=== PATIENT | female | born 1970 | race Caucasian/White ===

== ENCOUNTER 2020-07-01 17:20 | Emergency (ER) | payer SELFPAY ==
--- NOTE | 2020-07-01 18:23 | ER Document Report ---
ED Medical Screen (RME) - General Chief Complaint: Chest Pain Stated Complaint: CHEST PAIN,LEFT LEG PAIN Time Seen by Provider: 07/01/20 18:10 Mode of Arrival: Ambulatory Information source: Patient - HPI Patient complains to provider of: Leg pain, abdominal pain, chest pain Notes: 07/01/20 18:21 Patient here with multiple complaints. The patient has a extensive medical history including DVT, IVC filter, chronic pain. She has moved here from [place] at the beginning of the month. She does not have any of her medications including her Xarelto which she is supposed to be taking. States that she had surgery on her left knee at the end of last year. States that her dog injured her left knee she has had a lot of left knee pain since. She is also complaining of pain in the rest of her leg and she is concerned since she has not been on her blood thinner medications that she may have a blood clot in the left leg. She also reports some lower abdominal pain for the last few days and started having some chest pain earlier today. Exam: Nontoxic, no distress. Lungs clear and equal throughout. Heart sounds normal. Tenderness to palpation of the left anterior knee. No significant swelling. Normal pulse. No focal abdominal tenderness on limited triage abdominal exam. An initial examination was made on the patient as part of the triage process, and it was determined a more comprehensive evaluation was necessary. Initial orders were placed and patient was transferred to another provider in the ED who assumed care and finished evaluation and plan. - Related Data Allergies/Adverse Reactions: No Known Allergies Allergy (Verified 07/01/20 17:59) Physical Exam - Vital signs Vitals: Temp Pulse Resp BP Pulse Ox 98.5 F 92 20 122/75 99 07/01/20 17:39 07/01/20 17:39 07/01/20 17:39 07/01/20 17:39 07/01/20 17:39 Course - Vital Signs Vital signs: Temp Pulse Resp BP Pulse Ox 98.5 F 92 20 122/75 99 07/01/20 17:39 07/01/20 17:39 07/01/20 17:39 07/01/20 17:39 07/01/20 17:39
--- NOTE | 2020-07-01 19:04 | RADIOLOGY REPORT (SQ) ---
EXAM DESCRIPTION: CHEST 2 VIEWS IMAGES COMPLETED DATE/TIME: 07/01/2020 3:50 pm REASON FOR STUDY: CP COMPARISON: None. EXAM PARAMETERS: NUMBER OF VIEWS: two views TECHNIQUE: Digital Frontal and Lateral radiographic views of the chest acquired. RADIATION DOSE: NA LIMITATIONS: none FINDINGS: LUNGS AND PLEURA: Question of a retrocardiac nodular opacity projecting over the right atr ium. This is not definitively seen on the lateral view and could be within the anterior right middle lobe or could be artifactual. No pleural effusion or pneumothorax. MEDIASTINUM AND HILAR STRUCTURES: No masses or contour abnormalities. HEART AND VASCULAR STRUCTURES: Heart normal size. No evidence for failure. BONES: No acute findings. HARDWARE: None in the chest. OTHER: No other significant finding. IMPRESSION: Nodular opacity projecting over the medial right lower chest on frontal view without cor relate on lateral view could be artifactual, though right middle lobe nodule is not definitively excl uded. Consider CT for further evaluation. TECHNICAL DOCUMENTATION: JOB ID: [id number] 2010 [employer]- All Rights Reserved Reading location - IP/workstation name: [email or web address]
--- NOTE | 2020-07-01 19:07 | RADIOLOGY REPORT (SQ) ---
EXAM DESCRIPTION: KNEE LEFT 4 VIEW IMAGES COMPLETED DATE/TIME: 07/01/2020 3:50 pm REASON FOR STUDY: Left knee pain COMPARISON: None. NUMBER OF VIEWS: Four views. TECHNIQUE: AP, lateral, and both oblique radiographic images acquired of the left knee. LIMITATIONS: None. FINDINGS: MINERALIZATION: Normal. BONES: No acute fracture or dislocation. No worrisome bone lesions. JOINT: Small joint effusion. There may be minimal early degenerative changes with slight joint space narrowing and bony spurring in the medial and patellofemoral compartments. SOFT TISSUES: No soft tissue swelling. No radio-opaque foreign body. OTHER: No other significant finding. IMPRESSION: Small joint effusion and mild degenerative changes without acute fracture identified. TECHNICAL DOCUMENTATION: JOB ID: [id number] 2010 [employer]- All Rights Reserved Reading location - IP/workstation name: [email or web address]
[2020-07-01 19:23] LABS: ABSOLUTE LYMPHOCYTES (AUTO) 1.5 10^3/uL (0.5-4.7); ABSOLUTE MONOCYTES (AUTO) 0.5 10^3/uL (0.1-1.4); ABSOLUTE NEUT (AUTO) 5.1 10^3/uL (1.7-8.2); BASOPHILS % (AUTO) 0.4 % (0-2); EOSINOPHILS % (AUTO) 0.1 % (0-6); HEMATOCRIT 35.6 % (36.0-47.0); HEMOGLOBIN 12.2 g/dL (12.0-15.5); LYMPHOCYTES % (AUTO) 20.6 % (13-45); MEAN CORPUSCULAR HEMOGLOBIN 28.4 pg (27.0-33.4); MEAN CORPUSCULAR HGB CONC 34.2 g/dL (32.0-36.0); MEAN CORPUSCULAR VOLUME 83 fl (80-97); MONOCYTES % (AUTO) 7.1 % (3-13); PLATELET COUNT 303 10^3/uL (150-450); RED BLOOD COUNT 4.28 10^6/uL (3.72-5.28); RED CELL DISTRIBUTION WIDTH 13.9 % (11.5-14.0); SEGMENTED NEUTROPHILS % (AUTO) 71.8 % (42-78); TOTAL CELLS COUNTED % (AUTO) 100 %; WHITE BLOOD COUNT 7.1 10^3/uL (4.0-10.5)
[2020-07-01 19:29] LABS: INTERNATIONAL RATION (INR) 0.99; PROTHROMBIN TIME 13.3 SEC (11.4-15.4)
[2020-07-01 19:30] LABS: PARTIAL THROMBOPLASTIN TIME 28.1 SEC (23.5-35.8)
[2020-07-01 19:41] LABS: ALBUMIN 4.1 g/dL (3.5-5.0); ALKALINE PHOSPHATASE 115 U/L (38-126); ANION GAP 5 (5-19); ASPARTATE AMINO TRANSFERASE 27 U/L (14-36); BILIRUBIN,DIRECT 0.3 mg/dL (0.0-0.4); BILIRUBIN,TOTAL 0.5 mg/dL (0.2-1.3); BLOOD UREA NITROGEN 14 mg/dL (7-20); CALCIUM 9.4 mg/dL (8.4-10.2); CARBON DIOXIDE 27 mmol/L (22-30); CHLORIDE 106 mmol/L (98-107); GLUCOSE 101 mg/dL (75-110); POTASSIUM 4.1 mmol/L (3.6-5.0); TOTAL PROTEIN 7.2 g/dL (6.3-8.2)
--- NOTE | 2020-07-01 20:08 | ER Document Report ---
ED General - General Chief Complaint: Chest Pain Stated Complaint: CHEST PAIN,LEFT LEG PAIN Time Seen by Provider: 07/01/20 18:10 Primary Care Provider: BAR EMANUEL MD [ACTIVE STAFF] - Follow up in 1 week Mode of Arrival: Ambulatory Notes: Patient is a 49-year-old female that comes emergency department for chief complaint of intermittent sharp chest pain across the front of her chest that radiates into her back. She states she has felt this throughout the day, she states she has had chest pains along the past but they never radiate to the back so she became concerned and came in for evaluation. She also states that she has intermittent abdominal pain and has been having this for several days, she states she felt feverish and think she has a UTI. She also states that she injured her left knee with her dog was dragging her several weeks ago, she has had pain in the left knee since that time, she states she also has swelling sensation in her calf and lower leg and she thinks she has a blood clot. She states she moved to [place] about 2 weeks ago from [place], she states she lost most of her medications and the only medication she could find where her amitriptyline and Percocet. She states she is supposed to be on Xarelto, she has an IVC filter, she also states that she believes she has had blood clots since the placement of the IVC filter. She states she had surgery on the same knee at the end of April. She denies history of SD, family history of SD, s moking, alcohol, recreational drugs. She reports history of negative stress test in the past. She denies diabetes, hypertension, hyperlipidemia. - Related Data Allergies/Adverse Reactions: No Known Allergies Allergy (Verified 07/01/20 17:59) Past Medical History - General Information source: Patient - Social History Smoking Status: Never Smoker Frequency of alcohol use: None Drug Abuse: None Lives with: Family Family History: Reviewed & Not Pertinent - Past Medical History Cardiac Medical History: Reports: Hx DVT, Hx Pulmonary Embolism Musculoskeletal Medical History: Reports Hx Arthritis Psychiatric Medical History: Reports: Hx Anxiety, Hx Depression Past Surgical History: Reports: Other - IVC filter placement - Immunizations Hx Diphtheria, Pertussis, Tetanus Vaccination: Yes Review of Systems - Review of Systems Constitutional: No symptoms reported EENT: No symptoms reported Cardiovascular: See HPI Respiratory: See HPI Gastrointestinal: No symptoms reported Genitourinary: No symptoms reported Female Genitourinary: No symptoms reported Musculoskeletal: See HPI Skin: No symptoms reported Hematologic/Lymphatic: No symptoms reported Neurological/Psychological: No symptoms reported Physical Exam - Vital signs Vitals: Temp Pulse Resp BP Pulse Ox 98.5 F 92 20 122/75 99 07/01/20 17:39 07/01/20 17:39 07/01/20 17:39 07/01/20 17:39 07/01/20 17:39 - Notes Notes: GENERAL: Alert, interacts well. No acute distress. HEAD: Normocephalic, atraumatic. EYES: Pupils equal, round, and reactive to light. Extraocular movements intact. ENT: Oral mucosa moist, tongue midline. Oropharynx unremarkable. Airway patent. NECK: Full range of motion. Supple. Trachea midline. No lymphadenopathy. LUNGS: Clear to auscultation bilaterally, no wheezes, rales, or rhonchi. No respiratory distress. Non-tender chest wall. HEART: Regular rate and rhythm. No murmur ABDOMEN: Soft, non-tender. Non-distended. EXTREMITIES: Patient moves all extremities in full range of motion. There is questionable minimal edema in the left lower extremity compared to the right and there is tenderness starting at the calf up to the thigh. Minimal tenderness with no overt swelling or abnormality over the left knee with range of motion intact. Normal distal neurovascular exam. Otherwise unremarkable extremities. BACK: no cervical, thoracic, lumbar midline tenderness. No saddle anesthesia, normal distal neurovascular exam. Moves all extremities in full range of motion. NEUROLOGICAL: Alert and oriented x3. Normal speech. Cranial nerves II through XII grossly intact. Strength 5/5 in all extremities. PSYCH: Normal affect, normal mood. SKIN: Warm, dry, normal turgor. No rashes or lesions noted. Course - Re-evaluation Re-evalutation: Patient complaining of chest pain although she does not appear to be in any distress. She is talkative and well-appearing. Lungs clear. No fever, unrema rkable vital signs. However patient does have left lower extremity discomfort and questionable swelling with recent travel and history of DVT. She is also out of her Xarelto. D-dimer was performed and negative but we will proceed with Doppler based on her history and exam. CBC unremarkable, chemistry unremarkable, troponin negative. Troponin cycled and negative. Venous Doppler ultrasound of the left lower extremity shows fairly significant clotting. Patient persisting to complain of discomfort in her chest, CT was performed and shows bilateral patchy infiltrates which could be atypical pneumonia. Patient now states that she did feel fevers in the past couple of days. Patient tested for COVID-19, however she also be treated for potential atypical pneumonia. Patient has no established follow-up yet, she is requesting I call and establish this. I did speak with Dr. Emanuel, hematology, recommendation is starting patient on Xarelto and have her following up in the clinic, patient is to proceed with COVID-19 testing and return if she worsens. I discussed this at length with patient, discussed return precautions. Patient states understanding and agreement. Stable and well-appearing at time of discharge. - Vital Signs Vital signs: Temp Pulse Resp BP Pulse Ox 98.6 F 92 17 128/23 H 97 07/02/20 01:00 07/01/20 17:39 07/02/20 01:00 07/02/20 00:26 07/02/20 01:00 - Laboratory Results Result Diagrams: 07/01/20 19:10 07/01/20 19:11 Laboratory Results Interpreted: 07/01/20 07/01/20 18:38 19:10 Hct 35.6 L Ur Leukocyte Esterase MODERATE H Critical Laboratory Results Reviewed: No Critical Results - Radiology Results Critical Radiology Results Reviewed: No Critical Results - EKG Interpretation by Me Additional EKG results interpreted by me: EKG shows sinus rhythm at a rate of 90, normal axis, QTC 455, T wave flattening in lead III and anterior leads but no T wave inversions or ST segment changes in consecutive leads. Discharge - Discharge Clinical Impression: Person under investigation for COVID-19, Left leg pain Urinary tract infection Qualifiers: Urinary tract infection type: site unspecified Hematuria presence: without hematuria Qualified Code(s): N39.0 - Urinary tract infection, site not specified DVT (deep venous thrombosis) Qualifiers: DVT location: lower extremity Affected thrombotic vein of extremity: unspecified vein of extremity Chronicity: acute Laterality: left Qualified Code(s): I82.402 - Acute embolism and thrombosis of unspecified deep veins of left lower extremity Condition: Stable Disposition: HOME, SELF-CARE Instructions: COVID-19 Guidance for Persons Under Investigation Additional Instructions: Your work-up shows a urinary tract infection and atypical pneumonia, I suspect that you have COVID-19, you have been tested for this, please quarantine while you are awaiting your results. We will contact you with the results, see additional instructions on printout. We are prescribing doxycycline for coverage for both urinary tract infection and potential bacterial pneumonia. I spoke with Dr. Adelfo tate, please take the Xarelto as prescribed and follow-up with her in the clinic listed, call the listed referral for your follow-up. Return if you worsen including spiking fevers, difficulty breathing, severe worsening pain, or any other concerning or worsening symptoms. Prescriptions: Doxycycline Hyclate [Vibramycin 100 mg Tablet] 100 mg PO BID 7 Days #14 tablet Rivaroxaban [Xarelto 15 mg Tablet] 15 mg PO BID 21 Days #42 tablet Referrals: BAR EMANUEL MD [ACTIVE STAFF] - Follow up in 1 week
[2020-07-01 20:18] LABS: APPEARANCE,URINE SLIGHTLY-CLOUDY; BILIRUBIN,URINE NEGATIVE (NEGATIVE); COLOR,URINE YELLOW; GLUCOSE, URINE NEGATIVE (NEGATIVE); KETONES,URINE NEGATIVE (NEGATIVE); LEUKOCYTE ESTERASE,URINE MODERATE (NEGATIVE); NITRITE,URINE NEGATIVE (NEGATIVE); PROTEIN,URINE NEGATIVE (NEGATIVE); URINE SPECIFIC GRAVITY 1.023; UROBILINOGEN,URINE NEGATIVE mg/dL (<2.0)
[2020-07-01] MEDS ORDERED: ONDANSETRON HCL INJ/PF 4 MG/2 ML SDV IV ONE (20:22)
[2020-07-01] MEDS ORDERED: MORPHINE SULFATE 10 MG/ML INJ IV ONE ×2 (20:22→21:47)
[2020-07-01] MEDS ORDERED: CEPHALEXIN 500 MG CAPSULE PO ONE (22:50)
[2020-07-01] MEDS ORDERED: ENOXAPARIN SODIUM INJ 120 MG/0.8 ML DISP.SYRIN SUBCUT ONE (22:50)
--- NOTE | 2020-07-01 23:32 | RADIOLOGY REPORT (SQ) ---
EXAM DESCRIPTION: VENOUS UNILATERAL LOWER RadLex: US EXTREMITY VEINS UNILATERAL CLINICAL HISTORY: 49 years Female; pain left leg / Hx clots TECHNIQUE: Multiple grayscale sonographic images of the leg were obtained utilizing a high-frequency linear array transducer supplemented with color Doppler, compression and augmentation techniques. COMPARISON: None. FINDINGS: Left leg veins: Common femoral: Occlusive thrombus Greater saphenous: Patent upper Superficial femoral: Thrombus mid Superficial femoral: Thrombus, likely occlusive lower Superficial femoral: Occlusive thrombus Popliteal: Patent Posterior tibial: Patent Technologist notified the attending physician at 2250, per technologist Notes. IMPRESSION: 1. Deep venous thrombosis in the left lower extremity
--- NOTE | 2020-07-02 00:28 | RADIOLOGY REPORT (SQ) ---
EXAM DESCRIPTION: Site: CTA CHEST RP: CT CHEST ANGIOGRAPHY WITH IV CONTRAST CLINICAL HISTORY: 49 years Female; chest pain, hx of PE; TECHNIQUE: CT angiogram of the chest using intravenous contrast. MIP reconstructions were performed. All CT scans at this facility use dose modulation, iterative reconstruction, and/or weight based dosing when appropriate to reduce radiation dose to as low as reasonably achievable. COMPARISON: None. FINDINGS: Pulmonary arteries: No filling defects in the central pulmonary arteries. Lungs: Mild scattered groundglass densities bilaterally. No consolidation. No pneumothorax or pleural effusion. Mediastinum:No mediastinal mass or adenopathy. Mediastinal vascular structures are unremarkable. Bones:No acute bone findings. IMPRESSION: 1. Mild mosaic groundglass densities in both lungs, suspicious for atypical pneumonia. Imaging features can be seen with COVID-19 pneumonia, though are nonspecific and can occur with a variety of infectious and noninfectious processes. [PneInd] 2. No CT evidence for pulmonary embolism.
[2020-07-02] MEDS ORDERED: DOXYCYCLINE HYCLATE 100 MG TABLET PO ONE (00:34)
[2020-07-02 00:50] VITALS: BP 128/23
[2020-07-02] MEDS ORDERED: MORPHINE SULFATE IR 15 MG TABLET PO ONE (00:57)
--- NOTE | 2020-07-02 20:44 | EKG REPORT ---
SEVERITY:- BORDERLINE ECG - SINUS RHYTHM BORDERLINE T ABNORMALITIES, ANTERIOR LEADS : Confirmed by: Sonia Bailon MD 02-Jul-2020 20:43:35
== END 2020-07-02 01:18 | disposition home or self-care (01) ==
LOC: ER 17:20
DX: N39.0 Urinary tract infection, site not specified (principal); I82.402 Acute embolism and thrombosis of unspecified deep veins of left lower extremity; M79.605 Pain in left leg; R07.9 Chest pain, unspecified; R10.30 Lower abdominal pain, unspecified; Z79.01 Long term (current) use of anticoagulants; Z20.822 Contact with and (suspected) exposure to COVID-19; Z86.718 Personal history of other venous thrombosis and embolism
CPT/HCPCS: 93005; 96376; 99285; 96372; 96374; 96375; 36415; 87086; 83690; 85025; 85610; 85730; 81025; 80053; 81001; 84484; 85379; 93971; 71046; 73564; 71275; 93010; J1650; J2270; J2405